=== PATIENT | female | born 1930 | race Caucasian/White ===

== ENCOUNTER 2017-03-17 10:00 | Inpatient (IN) | payer MEDICARE ==
[~2017-03-17] VITALS: Ht 172.7 cm; Wt 79.4 kg
--- NOTE | 2017-03-17 10:00 | NUR ---
DR FAYE AT THE BEDSIDE FOR MSE.
[2017-03-17] MEDS ORDERED: IV NORMAL SALINE 500 ML BAG IV ONE (10:15)
[2017-03-17 10:29] LABS: *BILIRUBIN,URIN NEGATIVE (NEGATIVE); *BLOOD, URINE NEGATIVE (NEGATIVE); *CLARITY,URINE CLEAR (CLEAR); *COLOR,URINE YELLOW (YELLOW); *KETONES,URINE NEGATIVE (NEGATIVE); *PROTEIN,URINE NEGATIVE (NEGATIVE); *UROBILINOGEN,URINE 0.2 E.U./dl (NORMAL); LEUKOCYTE ESTERASE ,URINE NEGATIVE (NEGATIVE); NITRITE, URINE NEGATIVE (NEGATIVE); UGLUCOSE NEGATIVE (NEGATIVE)
[2017-03-17 10:37] LABS: BACTERIA,URINE NONE SEEN /HPF (NONE SEEN); RBC,URINE 0-3 /HPF (0-3); SQUAMOUS EPITHELIAL CELL,UR FEW /HPF (NONE SEEN); WBC,URINE 0-3 /HPF (0-3)
--- NOTE | 2017-03-17 10:37 | NUR ---
[facility] COLLECTED AND SENT TO LAB, BELONGING LIST COMPLETED.
[2017-03-17 10:38] LABS: MUCUS,URINE FEW /LPF (0-FEW)
[2017-03-17 10:42] LABS: BASOPHILS # (AUTO) 0.2 K/uL (0.0-8.0); BASOPHILS % (AUTO) 1.3 % (0.0-2.0); EOSINOPHILS # (AUTO) 1.6 K/uL (0.0-0.7); EOSINOPHILS % (AUTO) 13.3 % (0.0-7.0); HEMATOCRIT 33.9 % (31.2-41.9); HEMOGLOBIN 11.8 g/dL (10.9-14.3); LYMPHOCYTES # (AUTO) 1.9 K/uL (20.0-40.0); LYMPHOCYTES % (AUTO) 16.4 % (20.5-51.5); MEAN CORPUSCULAR HEMOGLOBIN 34.4 uug (24.7-32.8); MEAN CORPUSCULAR HGB CONC 35 g/dL (32.3-35.6); MEAN CORPUSCULAR VOLUME 98.9 fL (75.5-95.3); MONOCYTES # (AUTO) 0.7 K/uL (2.0-10.0); MONOCYTES % (AUTO) 6.2 % (0.0-11.0); NEUTROPHILS # (AUTO) 7.4 K/uL (1.8-8.9); NEUTROPHILS % (AUTO) 62.8 % (38.5-71.5); PLATELET COUNT (AUTO) 255 K/uL (179-408); RED BLOOD CELL COUNT(AUTO) 3.43 MIL/uL (3.63-4.92); WHITE BLOOD COUNT (AUTO) 11.7 K/uL (3.8-11.8)
[2017-03-17 10:57] LABS: ALANINE AMINOTRANSFERASE 25 U/L (14-59); ALKALINE PHOSPHATASE 78 U/L (50-136); ASPARTATE AMINOTRANSFERASE 19 U/L (15-37); BILIRUBIN,DIRECT 0.1 mg/dL (0.0-0.2); BILIRUBIN,TOTAL 0.5 mg/dL (0.2-1.0); CARBON DIOXIDE 25 mmol/L (21-32); CHLORIDE 103 mmol/L (98-107); CREATININE 0.9 mg/dL (0.6-1.3); GLUCOSE 101 mg/dL (74-106); POTASSIUM 4.4 mmol/L (3.5-5.1); TOTAL PROTEIN, SERUM 7.3 g/dL (6.4-8.2); UREA NITROGEN, BLOOD 18 mg/dL (7-18)
[2017-03-17] MEDS ORDERED: LEVO25TA9 PO (11:05)
[2017-03-17] MEDS ORDERED: HYDR-3326 PO (11:05)
[2017-03-17] MEDS ORDERED: ASPI81TA31 PO (11:05)
[2017-03-17] MEDS ORDERED: AMLO2.5T PO (11:05)
[2017-03-17] MEDS ORDERED: DIVA250T PO (11:05)
[2017-03-17] MEDS ORDERED: ATOR10TA PO (11:05)
[2017-03-17] MEDS ORDERED: LORA0.5T PO (11:05)
[2017-03-17] MEDS ORDERED: MIRT15TA7 PO (11:05)
[2017-03-17] MEDS ORDERED: CITA20TA11 PO (11:05)
[2017-03-17] MEDS ORDERED: ESOM40CA PO (11:05)
[2017-03-17] MEDS ORDERED: METO50TA16 PO (11:05)
--- NOTE | 2017-03-17 11:12 | NUR ---
DR WASHINGTON(ORTHO SURGEON) AT THE BEDSIDE.
[2017-03-17] MEDS ORDERED: MORPHINE SULFATE 2 MG/1 ML DISP.SYRIN IV PRN (11:15)
[2017-03-17] MEDS ORDERED: ONDANSETRON 4 MG/2 ML VIAL IV PRN (11:15)
[2017-03-17] MEDS ORDERED: MAGNESIUM HYDROXIDE 30 ML LIQUID UDC PO PRN (11:15)
[2017-03-17 12:16] VITALS: BP 115/74
[2017-03-17] MEDS ORDERED: DIVA125T2 PO (12:40)
[2017-03-17] MEDS: MORPHINE SULFATE 4 MG/1 ML DISP.SYRIN IV PRN ×2 (14:53→22:44)
[2017-03-17 15:07] VITALS: BP 132/72
[2017-03-17] MEDS: ATORVASTATIN 10 MG TABLET PO SCH (18:16)
[2017-03-17] MEDS: MIRTAZAPINE 15 MG TABLET PO SCH (18:16)
[2017-03-17] MEDS: LORAZEPAM 0.5 MG TABLET PO SCH ×2 (18:16→22:30)
--- NOTE | 2017-03-17 19:30 | NUR ---
Received patient laying in bed. Family at bedside. No acute distress noted. Patient is on 02 2L NC.TELE Pacing. IVF infusing. Patient's left foot is being stabilized by a pillow. Sabillon draining. Safety initiated. Call light within reach. Will continue to monitor.
[2017-03-17 20:00] VITALS: BP 131/64
[2017-03-17] MEDS: POTASSIUM CHLORIDE 20 MEQ in IV D5 1/2 NS 1000 ML 1,000 ML IV PRN (20:53)
[2017-03-18] VITALS (12 sets, daily range): BP systolic 121–154; BP diastolic 45–90
[2017-03-18] MEDS: MORPHINE SULFATE 4 MG/1 ML DISP.SYRIN IV PRN ×4 (03:09→21:07)
[2017-03-18] MEDS: LORAZEPAM 0.5 MG TABLET PO SCH (05:21)
[2017-03-18] MEDS: ACETAMINOPHEN 325 MG TABLET PO PRN (05:21)
--- NOTE | 2017-03-18 06:50 | NUR ---
Patient slept intermittently t/o shift. Patient c/o pain on the left leg. Meds given, demonstrated relief. Patient had an episode of anxiety, started taking out the TELE leads and oxygen. After a few minutes, she calmed down and I was able to put the tele leads back on. However, she refused the nasal cannula. Tele reads AV pacing. IVF infusing. Noted edema on the left leg. Pedal pulses on bilateral feet. Refused to be turned. Sabillon cath draining well. Sabillon care provided. Safety and comfort measures maintained t/o shift. Vital signs stable. All meds given as ordered. All needs met.
[2017-03-18] MEDS: LEVOTHYROXINE SODIUM 25 MCG TABLET PO SCH (07:00)
--- NOTE | 2017-03-18 07:30 | NUR ---
Awake, confused with healthcare management consultant at bedside. IV site leaking. Reinsertion attempted by machinist 2nd shift RN, but unsuccessful, will retry again, when patient is calmer
[2017-03-18 08:05] LABS: HEMATOCRIT 33.9 % (31.2-41.9); HEMOGLOBIN 11.5 g/dL (10.9-14.3); LYMPHOCYTES % (AUTO) 10.7 % (20.5-51.5); MEAN CORPUSCULAR HGB CONC 34 g/dL (32.3-35.6); MEAN CORPUSCULAR VOLUME 100.3 fL (75.5-95.3); MONOCYTES % (AUTO) 12.1 % (0.0-11.0); NEUTROPHILS % (AUTO) 67.6 % (38.5-71.5); PLATELET COUNT (AUTO) 243 K/uL (179-408); RED BLOOD CELL COUNT(AUTO) 3.38 MIL/uL (3.63-4.92); WHITE BLOOD COUNT (AUTO) 14.4 K/uL (3.8-11.8)
[2017-03-18 08:06] LABS: BASOPHILS # (AUTO) 0.1 K/uL (0.0-8.0); BASOPHILS % (AUTO) 0.6 % (0.0-2.0); EOSINOPHILS # (AUTO) 1.3 K/uL (0.0-0.7); LYMPHOCYTES # (AUTO) 1.5 K/uL (20.0-40.0); MONOCYTES # (AUTO) 1.7 K/uL (2.0-10.0); NEUTROPHILS # (AUTO) 9.7 K/uL (1.8-8.9)
[2017-03-18 08:20] LABS: ALANINE AMINOTRANSFERASE 21 U/L (14-59); ALKALINE PHOSPHATASE 72 U/L (50-136); ASPARTATE AMINOTRANSFERASE 14 U/L (15-37); BILIRUBIN,TOTAL 0.8 mg/dL (0.2-1.0); CARBON DIOXIDE 25 mmol/L (21-32); CHLORIDE 107 mmol/L (98-107); CHOLESTEROL 107 mg/dL (<200); CREATININE 0.9 mg/dL (0.6-1.3); GLUCOSE 112 mg/dL (74-106); HDL CHOLESTEROL 53 mg/dL (40-60); MAGNESIUM 1.8 mg/dL (1.8-2.4); POTASSIUM 4.5 mmol/L (3.5-5.1); TOTAL PROTEIN, SERUM 7.5 g/dL (6.4-8.2); TRIGLYCERIDES 45 MG/DL (30-150); UREA NITROGEN, BLOOD 19 mg/dL (7-18)
[2017-03-18] MEDS: AMLODIPINE 2.5 MG TABLET PO SCH (09:00)
[2017-03-18] MEDS: CHOLECALCIFEROL 400 UNITS TABLET PO SCH (09:00)
[2017-03-18] MEDS ORDERED: DIVALPROEX ER 250 MG TAB.SR.24H PO SCH (09:00)
[2017-03-18] MEDS: CITALOPRAM 20 MG TABLET PO SCH (09:00)
[2017-03-18] MEDS: CYANOCOBALAMIN 1,000 MCG TABLET PO SCH (09:00)
[2017-03-18] MEDS: ENOXAPARIN SODIUM 40 MG/0.4 ML DISP.SYRIN SQ SCH (09:00)
[2017-03-18] MEDS: MULTIVITAMINS,THERAPEUTIC TABLET PO SCH (09:00)
[2017-03-18] MEDS: PANTOPRAZOLE SODIUM 40 MG TABLET.DR PO SCH (09:00)
[2017-03-18] MEDS: METOPROLOL TARTRATE 50 MG TABLET PO SCH (09:00)
[2017-03-18] MEDS: DIVALPROEX 125 MG TABLET.DR PO SCH (09:00)
[2017-03-18] MEDS: OMEGA-3 FATTY ACIDS/FISH OIL CAPSULE PO SCH (09:00)
[2017-03-18] MEDS: POTASSIUM CHLORIDE 20 MEQ in IV D5 1/2 NS 1000 ML 1,000 ML IV PRN ×2 (09:25→23:53)
--- NOTE | 2017-03-18 09:25 | NUR ---
Patient agitated and combative, hitting, scratching, pulling. Saline lock placed to left upper arm with 2 person holding patient. IV site wrapped with ramesh dressing. IVF resumed. Complaining of pain, holding left hip. Morphine IV given as ordered. Resting, calmer after.
[2017-03-18] MEDS ORDERED: POLYMYXIN B SULFATE 500,000 UNITS, BACITRACIN 50,000 UNITS, NORMAL SALINE 20 ML MC ONE ×3 (14:00)
[2017-03-18] MEDS ORDERED: LIDOCAINE HCL 2% 20 ML VIAL MC ONE (14:24)
[2017-03-18] MEDS ORDERED: DEXAMETHASONE SOD PHOSPHATE 4 MG INJ IV ONE (14:24)
[2017-03-18] MEDS ORDERED: PROPOFOL 200 MG/20 ML BOTTLE IV ONE (14:24)
[2017-03-18] MEDS ORDERED: CEFAZOLIN 1 G VIAL MC ONE (14:24)
[2017-03-18] MEDS ORDERED: ONDANSETRON 4 MG/2 ML VIAL IV ONE (14:24)
[2017-03-18] MEDS ORDERED: NEOSTIGMINE METHYLSULFATE 10 MG/10 ML VIAL IV ONE (14:24)
[2017-03-18] MEDS ORDERED: IV LACTATED RINGERS SOLUTION 1,000 ML BAG IV ONE (14:24)
[2017-03-18] MEDS ORDERED: GLYCOPYRROLATE 0.2 MG/ML VIAL MC ONE (14:24)
[2017-03-18] MEDS ORDERED: DESFLURANE ANESTHESIA GAS 240 ML BOTTLE IH ONE (14:24)
[2017-03-18] MEDS ORDERED: IRR NORMAL SALINE IRRIGATION 1,000 ML BOTTLE IR ONE (14:24)
[2017-03-18] MEDS ORDERED: ROCURONIUM BROMIDE 50 MG/5 ML VIAL ONE (15:07)
--- NOTE | 2017-03-18 15:26 | NUR ---
To OR by bed
[2017-03-18] MEDS ORDERED: HYDROCODONE/APAP 5-325MG TABLET PO PRN (18:45)
--- NOTE | 2017-03-18 18:45 | NUR ---
INH TX GIVEN PER MD ORDER WITH 2.5MG ALBUTEROL AND 0.5MG ATROVENT
[2017-03-18] MEDS ORDERED: IPRATROPIUM BROMIDE 0.5 MG/2.5 ML NEBU ONE (18:58)
[2017-03-18] MEDS ORDERED: ALBUTEROL SULFATE 2.5 MG/3 ML NEBU ONE (18:58)
[2017-03-18] MEDS ORDERED: KETOROLAC TROMETHAMINE 30 MG INJ IVP PRN (19:00)
--- NOTE | 2017-03-18 19:50 | NUR ---
nsg: pt received fr pacu, a/o x 1. no acute distress noted. on 4L O2 via nc saturating at 99%. will titrate O2 to keep sat above 92%. tele, a pacing. neuro and circulatory checks completed. left hip dressing dry and intact. pedal pulses bilateral, wnl. abductor pillow in place. f/c draining victorino colored urine via gravity. iv's on left antecubital and right wrist patents. hip precaution maintained. cont to monitor.
[2017-03-18] MEDS: ATORVASTATIN 10 MG TABLET PO SCH ×2 (21:04→21:20)
[2017-03-18] MEDS: MIRTAZAPINE 15 MG TABLET PO SCH ×2 (21:05→21:20)
[2017-03-18] MEDS ORDERED: LORAZEPAM 2 MG/1 ML VIAL IV ONE (21:30)
--- NOTE | 2017-03-18 21:30 | NUR ---
NSG: Pt pulled out iv on right wrist. also, trying to pull out f/c. reorientation and reinforcement provided but pt remains confuse, combative to staff, trying to reach to pull f/c, and nasal cannula. will cont to monitor and notify md to see any treatment plan.
--- NOTE | 2017-03-18 22:15 | NUR ---
nsg: spoke with Dr. Brown. notified regarding patient behavior of pulling lines. received order for restraint (mittens).
[2017-03-19] VITALS: BP 128/50
[2017-03-19] MEDS ORDERED: CEFAZOLIN 1 G VIAL ONE (00:48)
[2017-03-19] MEDS: CEFAZOLIN 1 G in PREMIXED 1 EACH IV SCH ×3 (00:50→15:42)
--- NOTE | 2017-03-19 02:00 | NUR ---
NSG: PT COMFORTABLE SLEEPING. TITRATED O2 TO 2L VIA NC, SATURATING AT 98%.
[2017-03-19 04:00] VITALS: BP 139/50
[2017-03-19] MEDS: LEVOTHYROXINE SODIUM 25 MCG TABLET PO SCH (06:35)
[2017-03-19] MEDS: MORPHINE SULFATE 4 MG/1 ML DISP.SYRIN IV PRN ×2 (06:36→18:20)
[2017-03-19 08:45] LABS: BASOPHILS # (AUTO) 0.1 K/uL (0.0-8.0); EOSINOPHILS # (AUTO) 0.4 K/uL (0.0-0.7); HEMOGLOBIN 10.5 g/dL (10.9-14.3); LYMPHOCYTES # (AUTO) 1.5 K/uL (20.0-40.0); NEUTROPHILS # (AUTO) 14.5 K/uL (1.8-8.9); RED BLOOD CELL COUNT(AUTO) 3.07 MIL/uL (3.63-4.92)
[2017-03-19 08:57] LABS: BASOPHILS % (AUTO) 0.5 % (0.0-2.0); HEMATOCRIT 30.9 % (31.2-41.9); LYMPHOCYTES % (AUTO) 7.8 % (20.5-51.5); MEAN CORPUSCULAR HEMOGLOBIN 34.2 uug (24.7-32.8); MEAN CORPUSCULAR HGB CONC 34 g/dL (32.3-35.6); MEAN CORPUSCULAR VOLUME 100.6 fL (75.5-95.3); MONOCYTES % (AUTO) 15.6 % (0.0-11.0); NEUTROPHILS % (AUTO) 74.1 % (38.5-71.5); PLATELET COUNT (AUTO) 233 K/uL (179-408)
[2017-03-19 08:58] LABS: WHITE BLOOD COUNT (AUTO) 19.6 K/uL (3.8-11.8)
[2017-03-19 09:02] LABS: ALANINE AMINOTRANSFERASE 15 U/L (14-59); ALKALINE PHOSPHATASE 60 U/L (50-136); ASPARTATE AMINOTRANSFERASE 23 U/L (15-37); CARBON DIOXIDE 26 mmol/L (21-32); CHLORIDE 103 mmol/L (98-107); CREATININE 0.8 mg/dL (0.6-1.3); GLUCOSE 111 mg/dL (74-106); MAGNESIUM 1.7 mg/dL (1.8-2.4); PHOSPHOROUS 2.3 mg/dL (2.5-4.9); POTASSIUM 5.1 mmol/L (3.5-5.1); TOTAL PROTEIN, SERUM 7.1 g/dL (6.4-8.2); UREA NITROGEN, BLOOD 15 mg/dL (7-18)
[2017-03-19 09:23] LABS: THYROID STIMULATING HORMONE 2.494 mIU/mL (0.358-3.740)
[2017-03-19] MEDS: ASPIRIN EC 325 MG TABLET.DR PO SCH ×2 (10:29→17:21)
[2017-03-19] MEDS: CITALOPRAM 20 MG TABLET PO SCH (10:29)
[2017-03-19] MEDS: CHOLECALCIFEROL 400 UNITS TABLET PO SCH (10:30)
[2017-03-19] MEDS: PANTOPRAZOLE SODIUM 40 MG TABLET.DR PO SCH (10:30)
[2017-03-19] MEDS: OMEGA-3 FATTY ACIDS/FISH OIL CAPSULE PO SCH (10:30)
[2017-03-19] MEDS: DIVALPROEX 125 MG TABLET.DR PO SCH (10:30)
[2017-03-19] MEDS: CYANOCOBALAMIN 1,000 MCG TABLET PO SCH (10:30)
[2017-03-19] MEDS: LORAZEPAM 0.5 MG TABLET PO SCH ×2 (10:31→17:21)
[2017-03-19] MEDS: MULTIVITAMINS,THERAPEUTIC TABLET PO SCH (10:31)
[2017-03-19] MEDS: AMLODIPINE 2.5 MG TABLET PO SCH (10:37)
[2017-03-19] MEDS: METOPROLOL TARTRATE 50 MG TABLET PO SCH (10:37)
[2017-03-19] MEDS: ACETAMINOPHEN 325 MG TABLET PO PRN (10:40)
[2017-03-19] MEDS: ENOXAPARIN SODIUM 40 MG/0.4 ML DISP.SYRIN SQ SCH (10:44)
[2017-03-19 11:44] VITALS: BP 105/38
[2017-03-19 13:15] LABS: BAND % (MANUAL) 9 % (0-10); EOSINOPHILS % (MANUAL) 1 % (0-8); LYMPHOCYTES % (MANUAL) 7 % (20-40); MONOCYTES % (MANUAL) 9 % (2-10); NEUTROPHILS % (MANUAL) 74 % (42-75)
--- NOTE | 2017-03-19 13:40 | NUR ---
Midline inserted by JOLLY Chakraborty. Midline is at RICHARD 18g, no s/s of bleeding, site intact, dressing clean/dry.
--- NOTE | 2017-03-19 14:00 | NUR ---
Placed 1st step air mattress. Safety measures in place. Bed alarm on. Caregiver at bedside.
[2017-03-19] MEDS ORDERED: MAGNESIUM OXIDE 400 MG TABLET PO ONE (14:15)
[2017-03-19] MEDS ORDERED: SODIUM PHOSPHATE MM 15 MM in IV DEXTROSE 5% 250 ML IV ONE (15:30)
[2017-03-19] MEDS: IV D5 1/2 NS 1000 ML 1,000 ML IV PRN (15:49)
[2017-03-19 15:51] VITALS: BP 112/50
[2017-03-19] MEDS: ATORVASTATIN 10 MG TABLET PO SCH (17:21)
[2017-03-19] MEDS: MIRTAZAPINE 15 MG TABLET PO SCH (17:21)
--- NOTE | 2017-03-19 18:00 | NUR ---
Patient alert, in no distress, no SOB. IVF running, intact, no s/s of infiltration. Pain medication administered as ordered. Abductor pillow in between legs in place due to s/p left hip arthoplasty. Circulation/pulses on bilateral legs/foot checked. Sabillon cath intact/draining yellow/dark urine. Patient kept clean/dry, repositioned for comfort. Safety measures in place, bed alarm on. Caregiver at bedside. Will continue to monitor.
[2017-03-19 20:00] VITALS: BP 100/45
--- NOTE | 2017-03-19 20:00 | NUR ---
RECEIVED PATIENT ASLEEP IN BED. AROUSABLE TO NAME. NO S/S OF PAIN OR DISCOMFORT. NO FACIAL GRIMACE NOTED. ON O2 2L NC SATING. VSS. ABDUCTION PILLOW IN PLACE. F/C INTACT AND DRAINING. RECHECKED TEMPERATURE, 99.1. ALL OTHER VSS. ON AIR MATTRESS. BED ALARM ON. CALL LIGHT IN REACH. ALL NEEDS ATTENDED. WILL CONTINUE TO MONITOR.
[2017-03-20 04:42] VITALS: BP 115/51
[2017-03-20] MEDS: MORPHINE SULFATE 4 MG/1 ML DISP.SYRIN IV PRN ×2 (05:56→10:49)
--- NOTE | 2017-03-20 06:00 | NUR ---
PATIENT GIVEN MORPHINE 2MG IV PRN FOR PAIN. CAREGIVER AT BEDSIDE. VSS. IVF INFUSING WELL. BED ALARM ON. CALL LIGHT IN REACH. ALL NEEDS ATTENDED.
[2017-03-20] MEDS: IV D5 1/2 NS 1000 ML 1,000 ML IV PRN (06:16)
[2017-03-20] MEDS: LEVOTHYROXINE SODIUM 25 MCG TABLET PO SCH (06:24)
--- NOTE | 2017-03-20 06:30 | NUR ---
PATIENT ASLEEP. UNABLE TO TAKE PO SYNTHROID AT THIS TIME, PREVIOUSLY GIVEN MS 2MG IV PER PUMPER GAGER FOR PAIN. DRESSING C/D/I. CALL LIGHT IN REACH. ALL NEEDS ATTENDED, WILL CONTINUE TO MONITOR.
[2017-03-20 06:57] LABS: CARBON DIOXIDE 24 mmol/L (21-32); CHLORIDE 102 mmol/L (98-107); CREATININE 0.8 mg/dL (0.6-1.3); GLUCOSE 117 mg/dL (74-106); UREA NITROGEN, BLOOD 15 mg/dL (7-18)
[2017-03-20 07:32] LABS: BASOPHILS # (AUTO) 0.1 K/uL (0.0-8.0); BASOPHILS % (AUTO) 0.4 % (0.0-2.0); EOSINOPHILS # (AUTO) 1.3 K/uL (0.0-0.7); EOSINOPHILS % (AUTO) 8.3 % (0.0-7.0); HEMOGLOBIN 8.9 g/dL (10.9-14.3); LYMPHOCYTES # (AUTO) 1.7 K/uL (20.0-40.0); LYMPHOCYTES % (AUTO) 10.5 % (20.5-51.5); MEAN CORPUSCULAR HEMOGLOBIN 34.7 uug (24.7-32.8); MEAN CORPUSCULAR HGB CONC 36 g/dL (32.3-35.6); MONOCYTES # (AUTO) 2.3 K/uL (2.0-10.0); MONOCYTES % (AUTO) 14.4 % (0.0-11.0); NEUTROPHILS # (AUTO) 10.5 K/uL (1.8-8.9); NEUTROPHILS % (AUTO) 66.4 % (38.5-71.5); PLATELET COUNT (AUTO) 204 K/uL (179-408); RED BLOOD CELL COUNT(AUTO) 2.55 MIL/uL (3.63-4.92); WHITE BLOOD COUNT (AUTO) 15.9 K/uL (3.8-11.8)
[2017-03-20] MEDS: ASPIRIN EC 325 MG TABLET.DR PO SCH (10:04)
[2017-03-20] MEDS: OMEGA-3 FATTY ACIDS/FISH OIL CAPSULE PO SCH (10:04)
[2017-03-20] MEDS: LORAZEPAM 0.5 MG TABLET PO SCH (10:05)
[2017-03-20] MEDS: PANTOPRAZOLE SODIUM 40 MG TABLET.DR PO SCH (10:05)
[2017-03-20] MEDS: CITALOPRAM 20 MG TABLET PO SCH (10:05)
[2017-03-20] MEDS: DIVALPROEX 125 MG TABLET.DR PO SCH (10:05)
[2017-03-20] MEDS: CYANOCOBALAMIN 1,000 MCG TABLET PO SCH (10:05)
[2017-03-20] MEDS: CHOLECALCIFEROL 400 UNITS TABLET PO SCH (10:05)
[2017-03-20] MEDS: MULTIVITAMINS,THERAPEUTIC TABLET PO SCH (10:05)
[2017-03-20] MEDS: ENOXAPARIN SODIUM 40 MG/0.4 ML DISP.SYRIN SQ SCH (10:09)
[2017-03-20] MEDS: AMLODIPINE 2.5 MG TABLET PO SCH (10:17)
[2017-03-20] MEDS: METOPROLOL TARTRATE 50 MG TABLET PO SCH (10:17)
[2017-03-20 10:54] VITALS: BP 119/49
[2017-03-20 11:03] LABS: BAND % (MANUAL) 5 % (0-10); EOSINOPHILS % (MANUAL) 9 % (0-8); LYMPHOCYTES % (MANUAL) 9 % (20-40); MONOCYTES % (MANUAL) 14 % (2-10); NEUTROPHILS % (MANUAL) 63 % (42-75)
[2017-03-20] MEDS ORDERED: Morphine Sulfate Inj IV (11:47)
[2017-03-20] MEDS ORDERED: HYDR-3326 PO (11:47)
[2017-03-20] MEDS ORDERED: ASPI-610 PO (11:47)
--- NOTE | 2017-03-20 14:00 | NUR ---
Report given to JOLLY Lozano from ARU, patient to be discharged to room 104
--- NOTE | 2017-03-20 14:15 | NUR ---
Patient discharged to Acute Rehab Unit, accompanied by caregiver/family. Pt is alert, responsive, in no distress. Discharge papers/instructions provided to caregiver/family. Belonging list done, no belongings. Per caregiver, ring is in the possession of their possession (see belonging list on patient's chart, signed by caregiver Susana).
== END 2017-03-20 14:25 | DRG 469 ==
LOC: ER 10:00 → TELE 11:45 → MED 03-19 14:30
PROVIDERS: ADMIT Internal Medicine; ATTEND Internal Medicine
PROC: 0SRS0JZ Replacement of Left Hip Joint, Femoral Surface with Synthetic Substitute, Open Approach (ICD-10-PCS; principal; 2017-03-18 15:56)
PROC: 05H633Z Insertion of Infusion Device into Left Subclavian Vein, Percutaneous Approach (ICD-10-PCS; 2017-03-19)
DX: S72.012A Unspecified intracapsular fracture of left femur, initial encounter for closed fracture (principal); G93.49 Other encephalopathy; J90 Pleural effusion, not elsewhere classified; E83.42 Hypomagnesemia; E66.9 Obesity, unspecified; F03.90 Unspecified dementia, unspecified severity, without behavioral disturbance, psychotic disturbance, mood disturbance, and anxiety; E78.5 Hyperlipidemia, unspecified; W18.30XA Fall on same level, unspecified, initial encounter; Y92.009 Unspecified place in unspecified non-institutional (private) residence as the place of occurrence of the external cause; K21.9 Gastro-esophageal reflux disease without esophagitis; F41.9 Anxiety disorder, unspecified; Z85.3 Personal history of malignant neoplasm of breast; M85.80 Other specified disorders of bone density and structure, unspecified site; Z95.0 Presence of cardiac pacemaker; Z68.26 Body mass index [BMI] 26.0-26.9, adult; F32.9 Major depressive disorder, single episode, unspecified; Z87.891 Personal history of nicotine dependence; Z79.82 Long term (current) use of aspirin; Z79.899 Other long term (current) drug therapy; D72.829 Elevated white blood cell count, unspecified; I10 Essential (primary) hypertension; R73.9 Hyperglycemia, unspecified; E03.9 Hypothyroidism, unspecified
CPT/HCPCS: 36415; 70030-TC; 71045; 72170; 73502; 73503; 83605; 83735; 84100; 84443; 85025; 85730; 86850; 86900; 86901; 86920; 87040; 87086; 93005; 93307; 94664; 97110; 97530; A4217; A4663; J0690; J1100; J1650; J2060; J2270; J2405; J2710; J3480; J3490; J3590; J7040; J7060; J7120

== ENCOUNTER 2017-03-20 12:48 | Inpatient (IN) | payer MEDICARE ==
[~2017-03-20] VITALS: Ht 172.7 cm; Wt 79.4 kg
[~2017-03-20 12:48] MED LIST: AMLO2.5T PO; ASPI-610 PO; ASPI81TA31 PO; ATOR10TA PO; CITA20TA11 PO; DIVA125T2 PO; ESOM40CA PO; HYDR-3326 PO; LEVO25TA9 PO; LORA0.5T PO; METO50TA16 PO; MIRT15TA7 PO; Morphine Sulfate Inj IV
[2017-03-20] MEDS ORDERED: Z GUARD REMEDY PASTE 57 GM TUBE TOP PRN (15:30)
[2017-03-20] MEDS ORDERED: MAGNESIUM HYDROXIDE 30 ML LIQUID UDC PO PRN (15:30)
[2017-03-20 17:33] VITALS: BP 142/58
[2017-03-20] MEDS ORDERED: HYDROCODONE/APAP 5-325MG TABLET PO PRN (19:00)
[2017-03-20 20:51] VITALS: BP 131/59
[2017-03-20] MEDS: ACETAMINOPHEN 325 MG TABLET PO SCH (20:56)
[2017-03-20] MEDS ORDERED: LORAZEPAM 0.5 MG TABLET PO ONE (21:00)
[2017-03-20] MEDS: ATORVASTATIN 10 MG TABLET PO SCH (21:31)
[2017-03-20] MEDS ORDERED: ACETAMINOPHEN 650 MG/20.3 ML LIQUID UDC PO SCH (22:00)
[2017-03-21] MEDS: HYDROCODONE/APAP 5-325MG TABLET PO PRN ×2 (00:09→09:04)
[2017-03-21] MEDS: PANTOPRAZOLE SODIUM 40 MG TABLET.DR PO SCH (06:22)
[2017-03-21] MEDS: ACETAMINOPHEN 325 MG TABLET PO SCH ×3 (06:22→21:16)
[2017-03-21] MEDS: LEVOTHYROXINE SODIUM 25 MCG TABLET PO SCH (06:22)
[2017-03-21 08:00] VITALS: BP 124/56
[2017-03-21] MEDS: CITALOPRAM 20 MG TABLET PO SCH (08:56)
[2017-03-21] MEDS: ASPIRIN EC 325 MG TABLET.DR PO SCH ×2 (08:57→17:11)
[2017-03-21] MEDS: LORAZEPAM 0.5 MG TABLET PO SCH ×2 (08:57→17:12)
[2017-03-21] MEDS: AMLODIPINE 2.5 MG TABLET PO SCH (08:58)
[2017-03-21] MEDS: METOPROLOL TARTRATE 50 MG TABLET PO SCH (12:37)
[2017-03-21] MEDS: DIVALPROEX 125 MG TABLET.DR PO SCH (12:38)
[2017-03-21] MEDS: MIRTAZAPINE 15 MG TABLET PO SCH (17:12)
[2017-03-21] MEDS: ATORVASTATIN 10 MG TABLET PO SCH (17:12)
[2017-03-21 20:42] VITALS: BP 93/60
[2017-03-22] MEDS: HYDROCODONE/APAP 5-325MG TABLET PO PRN (04:20)
[2017-03-22] MEDS: PANTOPRAZOLE SODIUM 40 MG TABLET.DR PO SCH (06:43)
[2017-03-22] MEDS: ACETAMINOPHEN 325 MG TABLET PO SCH ×3 (06:43→21:31)
[2017-03-22] MEDS: LEVOTHYROXINE SODIUM 25 MCG TABLET PO SCH (06:44)
[2017-03-22 08:00] VITALS: BP 99/41
[2017-03-22] MEDS: METOPROLOL TARTRATE 50 MG TABLET PO SCH (09:00)
[2017-03-22] MEDS: AMLODIPINE 2.5 MG TABLET PO SCH (09:00)
[2017-03-22 09:30] VITALS: BP 124/65
[2017-03-22] MEDS: ASPIRIN EC 325 MG TABLET.DR PO SCH ×2 (09:55→17:00)
[2017-03-22] MEDS: LORAZEPAM 0.5 MG TABLET PO SCH ×2 (09:55→17:30)
[2017-03-22] MEDS: DIVALPROEX 125 MG TABLET.DR PO SCH (09:56)
[2017-03-22] MEDS: CITALOPRAM 20 MG TABLET PO SCH (09:57)
[2017-03-22] MEDS: ATORVASTATIN 10 MG TABLET PO SCH (17:33)
[2017-03-22] MEDS: MIRTAZAPINE 15 MG TABLET PO SCH (17:33)
[2017-03-22 20:28] VITALS: BP 129/50
[2017-03-23] MEDS: PANTOPRAZOLE SODIUM 40 MG TABLET.DR PO SCH (06:15)
[2017-03-23] MEDS: LEVOTHYROXINE SODIUM 25 MCG TABLET PO SCH (06:16)
[2017-03-23] MEDS: ACETAMINOPHEN 325 MG TABLET PO SCH ×3 (06:16→21:00)
[2017-03-23] MEDS: ASPIRIN 325 MG TABLET PO SCH ×2 (08:37→17:18)
[2017-03-23] MEDS: DIVALPROEX 125 MG TABLET.DR PO SCH (08:37)
[2017-03-23] MEDS: LORAZEPAM 0.5 MG TABLET PO SCH ×2 (08:38→17:18)
[2017-03-23] MEDS: CITALOPRAM 20 MG TABLET PO SCH (08:38)
[2017-03-23] MEDS: METOPROLOL TARTRATE 50 MG TABLET PO SCH (08:38)
[2017-03-23] MEDS: AMLODIPINE 2.5 MG TABLET PO SCH (08:38)
[2017-03-23 08:53] VITALS: BP 128/62
[2017-03-23] MEDS: ATORVASTATIN 10 MG TABLET PO SCH (17:18)
[2017-03-23] MEDS: MIRTAZAPINE 15 MG TABLET PO SCH (17:18)
[2017-03-23 20:26] VITALS: BP 128/74
[2017-03-23] MEDS: LORAZEPAM 0.5 MG TABLET PO PRN (21:08)
[2017-03-23] MEDS ORDERED: LORAZEPAM 0.5 MG TABLET ONE (21:26)
[2017-03-24] MEDS: PANTOPRAZOLE SODIUM 40 MG TABLET.DR PO SCH (06:19)
[2017-03-24] MEDS: LEVOTHYROXINE SODIUM 25 MCG TABLET PO SCH (06:19)
[2017-03-24] MEDS: ACETAMINOPHEN 325 MG TABLET PO SCH ×3 (06:19→21:07)
[2017-03-24] MEDS ORDERED: LEVOTHYROXINE SODIUM 25 MCG TABLET ONE (06:28)
[2017-03-24 08:00] VITALS: BP 161/74
[2017-03-24] MEDS: ASPIRIN 325 MG TABLET PO SCH ×2 (08:28→17:09)
[2017-03-24] MEDS: DIVALPROEX 125 MG TABLET.DR PO SCH (08:28)
[2017-03-24] MEDS: CITALOPRAM 20 MG TABLET PO SCH (08:28)
[2017-03-24] MEDS: AMLODIPINE 2.5 MG TABLET PO SCH (08:29)
[2017-03-24] MEDS: LORAZEPAM 0.5 MG TABLET PO SCH ×2 (08:29→17:10)
[2017-03-24] MEDS: METOPROLOL TARTRATE 50 MG TABLET PO SCH (08:29)
[2017-03-24] MEDS: ATORVASTATIN 10 MG TABLET PO SCH (17:10)
[2017-03-24] MEDS: MIRTAZAPINE 15 MG TABLET PO SCH (17:10)
[2017-03-24 19:55] VITALS: BP 140/55
[2017-03-24] MEDS: LORAZEPAM 0.5 MG TABLET PO PRN (21:39)
[2017-03-25] MEDS: LEVOTHYROXINE SODIUM 25 MCG TABLET PO SCH (06:07)
[2017-03-25] MEDS: ACETAMINOPHEN 325 MG TABLET PO SCH ×3 (06:07→21:05)
[2017-03-25] MEDS: PANTOPRAZOLE SODIUM 40 MG TABLET.DR PO SCH (06:07)
[2017-03-25 08:39] VITALS: BP 125/57
[2017-03-25] MEDS: ASPIRIN 325 MG TABLET PO SCH ×2 (08:42→17:25)
[2017-03-25] MEDS: DIVALPROEX 125 MG TABLET.DR PO SCH (08:42)
[2017-03-25] MEDS: CITALOPRAM 20 MG TABLET PO SCH (08:42)
[2017-03-25] MEDS: LORAZEPAM 0.5 MG TABLET PO SCH ×2 (08:42→17:25)
[2017-03-25] MEDS: HYDROCODONE/APAP 5-325MG TABLET PO PRN (08:43)
[2017-03-25] MEDS: METOPROLOL TARTRATE 50 MG TABLET PO SCH (08:44)
[2017-03-25] MEDS: AMLODIPINE 2.5 MG TABLET PO SCH (08:44)
[2017-03-25] MEDS: ATORVASTATIN 10 MG TABLET PO SCH (17:25)
[2017-03-25] MEDS: MIRTAZAPINE 15 MG TABLET PO SCH (17:26)
[2017-03-25 21:28] VITALS: BP 129/62
[2017-03-26] MEDS: PANTOPRAZOLE SODIUM 40 MG TABLET.DR PO SCH (06:42)
[2017-03-26] MEDS: LEVOTHYROXINE SODIUM 25 MCG TABLET PO SCH (06:42)
[2017-03-26] MEDS: ACETAMINOPHEN 325 MG TABLET PO SCH ×3 (06:42→21:04)
[2017-03-26 07:10] VITALS: BP 159/82
[2017-03-26] MEDS: CITALOPRAM 20 MG TABLET PO SCH (08:25)
[2017-03-26] MEDS: ASPIRIN 325 MG TABLET PO SCH ×2 (08:25→16:28)
[2017-03-26] MEDS: LORAZEPAM 0.5 MG TABLET PO SCH ×2 (08:26→16:29)
[2017-03-26] MEDS: DIVALPROEX 125 MG TABLET.DR PO SCH (08:27)
[2017-03-26] MEDS: METOPROLOL TARTRATE 50 MG TABLET PO SCH (08:27)
[2017-03-26] MEDS: AMLODIPINE 2.5 MG TABLET PO SCH (08:27)
[2017-03-26] MEDS: HYDROCODONE/APAP 5-325MG TABLET PO PRN (10:58)
[2017-03-26] MEDS: MIRTAZAPINE 15 MG TABLET PO SCH (17:03)
[2017-03-26] MEDS: ATORVASTATIN 10 MG TABLET PO SCH (17:03)
[2017-03-27] MEDS: LORAZEPAM 0.5 MG TABLET PO PRN (00:03)
[2017-03-27] MEDS: ACETAMINOPHEN 325 MG TABLET PO SCH ×3 (06:09→21:10)
[2017-03-27] MEDS: PANTOPRAZOLE SODIUM 40 MG TABLET.DR PO SCH (06:11)
[2017-03-27] MEDS: LEVOTHYROXINE SODIUM 25 MCG TABLET PO SCH (06:15)
[2017-03-27 07:25] VITALS: BP 140/67
[2017-03-27] MEDS: CITALOPRAM 20 MG TABLET PO SCH (08:53)
[2017-03-27] MEDS: DIVALPROEX 125 MG TABLET.DR PO SCH (08:53)
[2017-03-27] MEDS: ASPIRIN 325 MG TABLET PO SCH ×2 (08:53→17:36)
[2017-03-27] MEDS: LORAZEPAM 0.5 MG TABLET PO SCH ×2 (08:53→17:36)
[2017-03-27] MEDS: METOPROLOL TARTRATE 50 MG TABLET PO SCH (08:54)
[2017-03-27] MEDS: HYDROCODONE/APAP 5-325MG TABLET PO PRN (08:55)
[2017-03-27] MEDS: AMLODIPINE 2.5 MG TABLET PO SCH (08:55)
[2017-03-27] MEDS: MIRTAZAPINE 15 MG TABLET PO SCH (17:36)
[2017-03-27] MEDS: ATORVASTATIN 10 MG TABLET PO SCH (17:36)
[2017-03-27 20:00] VITALS: BP 131/61
[2017-03-28] MEDS: PANTOPRAZOLE SODIUM 40 MG TABLET.DR PO SCH (06:14)
[2017-03-28] MEDS: ACETAMINOPHEN 325 MG TABLET PO SCH ×3 (06:15→20:38)
[2017-03-28] MEDS: LEVOTHYROXINE SODIUM 25 MCG TABLET PO SCH (06:15)
[2017-03-28] MEDS: ASPIRIN 325 MG TABLET PO SCH ×2 (08:55→17:19)
[2017-03-28] MEDS: METOPROLOL TARTRATE 50 MG TABLET PO SCH (08:55)
[2017-03-28] MEDS: LORAZEPAM 0.5 MG TABLET PO SCH ×2 (08:56→17:19)
[2017-03-28] MEDS: DIVALPROEX 125 MG TABLET.DR PO SCH (08:56)
[2017-03-28] MEDS: AMLODIPINE 2.5 MG TABLET PO SCH (08:56)
[2017-03-28] MEDS: CITALOPRAM 20 MG TABLET PO SCH (08:56)
[2017-03-28 09:03] VITALS: BP 158/70
[2017-03-28] MEDS: HYDROCODONE/APAP 5-325MG TABLET PO PRN (09:06)
[2017-03-28] MEDS: ATORVASTATIN 10 MG TABLET PO SCH (17:19)
[2017-03-28] MEDS: MIRTAZAPINE 15 MG TABLET PO SCH (17:19)
[2017-03-28 20:28] VITALS: BP 137/73
[2017-03-28] MEDS: LORAZEPAM 0.5 MG TABLET PO PRN (23:55)
[2017-03-29] MEDS: PANTOPRAZOLE SODIUM 40 MG TABLET.DR PO SCH (06:09)
[2017-03-29] MEDS: ACETAMINOPHEN 325 MG TABLET PO SCH ×3 (06:09→21:12)
[2017-03-29] MEDS: LEVOTHYROXINE SODIUM 25 MCG TABLET PO SCH (06:11)
[2017-03-29 08:13] VITALS: BP 133/55
[2017-03-29] MEDS: AMLODIPINE 2.5 MG TABLET PO SCH (08:32)
[2017-03-29] MEDS: LORAZEPAM 0.5 MG TABLET PO SCH ×2 (08:32→16:18)
[2017-03-29] MEDS: ASPIRIN 325 MG TABLET PO SCH ×2 (08:32→16:18)
[2017-03-29] MEDS: METOPROLOL TARTRATE 50 MG TABLET PO SCH (08:34)
[2017-03-29] MEDS: DIVALPROEX 125 MG TABLET.DR PO SCH (08:34)
[2017-03-29] MEDS: HYDROCODONE/APAP 5-325MG TABLET PO PRN (08:34)
[2017-03-29] MEDS: CITALOPRAM 20 MG TABLET PO SCH (08:34)
[2017-03-29 10:12] LABS: BASOPHILS # (AUTO) 0.4 K/uL (0.0-8.0); BASOPHILS % (AUTO) 4.5 % (0.0-2.0); EOSINOPHILS # (AUTO) 1.2 K/uL (0.0-0.7); EOSINOPHILS % (AUTO) 13.1 % (0.0-7.0); HEMOGLOBIN 9.1 g/dL (10.9-14.3); LYMPHOCYTES # (AUTO) 1.6 K/uL (20.0-40.0); LYMPHOCYTES % (AUTO) 17.9 % (20.5-51.5); MEAN CORPUSCULAR HEMOGLOBIN 34.7 uug (24.7-32.8); MEAN CORPUSCULAR HGB CONC 35 g/dL (32.3-35.6); MEAN CORPUSCULAR VOLUME 98.9 fL (75.5-95.3); MONOCYTES # (AUTO) 0.9 K/uL (2.0-10.0); NEUTROPHILS # (AUTO) 4.9 K/uL (1.8-8.9); NEUTROPHILS % (AUTO) 54.5 % (38.5-71.5); PLATELET COUNT (AUTO) 359 K/uL (179-408); RED BLOOD CELL COUNT(AUTO) 2.63 MIL/uL (3.63-4.92)
[2017-03-29 10:35] LABS: ALANINE AMINOTRANSFERASE 19 U/L (14-59); ALKALINE PHOSPHATASE 116 U/L (50-136); ASPARTATE AMINOTRANSFERASE 14 U/L (15-37); BILIRUBIN,TOTAL 0.4 mg/dL (0.2-1.0); CARBON DIOXIDE 25 mmol/L (21-32); CHLORIDE 104 mmol/L (98-107); CREATININE 0.8 mg/dL (0.6-1.3); GLUCOSE 125 mg/dL (74-106); MAGNESIUM 1.7 mg/dL (1.8-2.4); POTASSIUM 4.6 mmol/L (3.5-5.1); TOTAL PROTEIN, SERUM 6.4 g/dL (6.4-8.2); UREA NITROGEN, BLOOD 14 mg/dL (7-18)
[2017-03-29] MEDS: MIRTAZAPINE 15 MG TABLET PO SCH (17:21)
[2017-03-29] MEDS: ATORVASTATIN 10 MG TABLET PO SCH (17:21)
[2017-03-29 19:54] VITALS: BP 136/64
[2017-03-29] MEDS: LORAZEPAM 0.5 MG TABLET PO PRN (21:12)
[2017-03-30] MEDS: LEVOTHYROXINE SODIUM 25 MCG TABLET PO SCH (06:22)
[2017-03-30] MEDS: PANTOPRAZOLE SODIUM 40 MG TABLET.DR PO SCH (06:22)
[2017-03-30] MEDS: ACETAMINOPHEN 325 MG TABLET PO SCH ×3 (06:22→21:07)
[2017-03-30 07:30] VITALS: BP 134/60
[2017-03-30] MEDS: ASPIRIN 325 MG TABLET PO SCH ×2 (08:45→17:19)
[2017-03-30] MEDS: CITALOPRAM 20 MG TABLET PO SCH (08:45)
[2017-03-30] MEDS: DIVALPROEX 125 MG TABLET.DR PO SCH (08:45)
[2017-03-30] MEDS: METOPROLOL TARTRATE 50 MG TABLET PO SCH (08:45)
[2017-03-30] MEDS: AMLODIPINE 2.5 MG TABLET PO SCH (08:46)
[2017-03-30] MEDS: HYDROCODONE/APAP 5-325MG TABLET PO PRN (08:46)
[2017-03-30] MEDS: LORAZEPAM 0.5 MG TABLET PO SCH ×2 (08:46→17:20)
[2017-03-30] MEDS ORDERED: MAGNESIUM OXIDE 400 MG TABLET PO ONE (17:00)
[2017-03-30] MEDS: ATORVASTATIN 10 MG TABLET PO SCH (17:20)
[2017-03-30] MEDS: MIRTAZAPINE 15 MG TABLET PO SCH (17:22)
[2017-03-30 20:18] VITALS: BP 124/52
[2017-03-31] MEDS: ACETAMINOPHEN 325 MG TABLET PO SCH ×3 (06:21→21:04)
[2017-03-31] MEDS: PANTOPRAZOLE SODIUM 40 MG TABLET.DR PO SCH (06:21)
[2017-03-31] MEDS: LEVOTHYROXINE SODIUM 25 MCG TABLET PO SCH (06:22)
[2017-03-31 08:35] VITALS: BP 129/63
[2017-03-31] MEDS: LORAZEPAM 0.5 MG TABLET PO SCH ×2 (09:17→18:29)
[2017-03-31] MEDS: DIVALPROEX 125 MG TABLET.DR PO SCH (09:17)
[2017-03-31] MEDS: CITALOPRAM 20 MG TABLET PO SCH (09:17)
[2017-03-31] MEDS: METOPROLOL TARTRATE 50 MG TABLET PO SCH (09:18)
[2017-03-31] MEDS: AMLODIPINE 2.5 MG TABLET PO SCH (09:18)
[2017-03-31] MEDS: ASPIRIN 325 MG TABLET PO SCH ×2 (09:20→18:28)
[2017-03-31] MEDS: MIRTAZAPINE 15 MG TABLET PO SCH (18:28)
[2017-03-31] MEDS: ATORVASTATIN 10 MG TABLET PO SCH (18:29)
[2017-03-31 20:49] VITALS: BP 122/62
[2017-03-31] MEDS: LORAZEPAM 0.5 MG TABLET PO PRN (22:29)
[2017-04-01] MEDS: ACETAMINOPHEN 325 MG TABLET PO SCH ×3 (06:06→21:29)
[2017-04-01] MEDS: PANTOPRAZOLE SODIUM 40 MG TABLET.DR PO SCH (06:06)
[2017-04-01] MEDS: LEVOTHYROXINE SODIUM 25 MCG TABLET PO SCH (06:07)
[2017-04-01 07:20] VITALS: BP 137/57
[2017-04-01 08:00] VITALS: BP 112/68
[2017-04-01] MEDS: DIVALPROEX 125 MG TABLET.DR PO SCH (08:57)
[2017-04-01] MEDS: CITALOPRAM 20 MG TABLET PO SCH (08:58)
[2017-04-01] MEDS: FUROSEMIDE 20 MG TABLET PO SCH (08:58)
[2017-04-01] MEDS: ASPIRIN 325 MG TABLET PO SCH ×2 (08:58→17:13)
[2017-04-01] MEDS: LORAZEPAM 0.5 MG TABLET PO SCH ×2 (08:58→17:14)
[2017-04-01] MEDS: METOPROLOL TARTRATE 50 MG TABLET PO SCH (08:59)
[2017-04-01] MEDS: AMLODIPINE 2.5 MG TABLET PO SCH (08:59)
[2017-04-01] MEDS: ATORVASTATIN 10 MG TABLET PO SCH (17:13)
[2017-04-01] MEDS: MIRTAZAPINE 15 MG TABLET PO SCH (17:14)
[2017-04-01] MEDS: LORAZEPAM 0.5 MG TABLET PO PRN (22:17)
[2017-04-02] MEDS: ACETAMINOPHEN 325 MG TABLET PO SCH ×2 (06:16→13:31)
[2017-04-02] MEDS: PANTOPRAZOLE SODIUM 40 MG TABLET.DR PO SCH (06:16)
[2017-04-02] MEDS: LEVOTHYROXINE SODIUM 25 MCG TABLET PO SCH (06:16)
[2017-04-02 07:20] VITALS: BP 132/57
[2017-04-02] MEDS: ASPIRIN 325 MG TABLET PO SCH (10:03)
[2017-04-02] MEDS: DIVALPROEX 125 MG TABLET.DR PO SCH (10:04)
[2017-04-02] MEDS: LORAZEPAM 0.5 MG TABLET PO SCH (10:04)
[2017-04-02] MEDS: AMLODIPINE 2.5 MG TABLET PO SCH (10:04)
[2017-04-02] MEDS: FUROSEMIDE 20 MG TABLET PO SCH (10:04)
[2017-04-02] MEDS: CITALOPRAM 20 MG TABLET PO SCH (10:04)
[2017-04-02] MEDS: METOPROLOL TARTRATE 50 MG TABLET PO SCH (10:05)
[2017-04-02 13:00] VITALS: BP 108/50
== END 2017-04-02 15:00 | disposition home health service (06) | DRG 559 ==
PROVIDERS: ADMIT Physical Medicine & Rehabilitation Pain Medicine; ATTEND Physical Medicine & Rehabilitation Pain Medicine
DX: M80.052D Age-related osteoporosis with current pathological fracture, left femur, subsequent encounter for fracture with routine healing (principal); E43 Unspecified severe protein-calorie malnutrition; G93.49 Other encephalopathy; I50.33 Acute on chronic diastolic (congestive) heart failure; D68.59 Other primary thrombophilia; D63.8 Anemia in other chronic diseases classified elsewhere; E83.42 Hypomagnesemia; F03.90 Unspecified dementia, unspecified severity, without behavioral disturbance, psychotic disturbance, mood disturbance, and anxiety; J98.11 Atelectasis; E03.9 Hypothyroidism, unspecified; E78.5 Hyperlipidemia, unspecified; Z85.3 Personal history of malignant neoplasm of breast; Z96.642 Presence of left artificial hip joint; K21.9 Gastro-esophageal reflux disease without esophagitis; R26.9 Unspecified abnormalities of gait and mobility; E66.9 Obesity, unspecified; Z68.26 Body mass index [BMI] 26.0-26.9, adult; F32.9 Major depressive disorder, single episode, unspecified; F41.9 Anxiety disorder, unspecified; I11.0 Hypertensive heart disease with heart failure; I49.9 Cardiac arrhythmia, unspecified; M19.90 Unspecified osteoarthritis, unspecified site; Z95.0 Presence of cardiac pacemaker; R73.9 Hyperglycemia, unspecified; M85.80 Other specified disorders of bone density and structure, unspecified site
CPT/HCPCS: 36415; 71045; 82306; 83735; 84100; 85025; 92526; 92610; 97110; 97112; 97116; 97530; 97535; A4663; J7030

== ENCOUNTER 2017-11-20 13:06 | Emergency (ER) | payer MEDICARE ==
[~2017-11-20] VITALS: Ht 165.1 cm; Wt 77.1 kg
[~2017-11-20 13:06] MED LIST changes: -AMLO2.5T PO; +AMLO2.5T3 PO; -ASPI81TA31 PO; -CITA20TA11 PO; +CITA20TA16 PO
--- NOTE | 2017-11-20 13:16 | NUR ---
PT IS IN ROOM #1B. DR SIDDIQUI EVALUATED THE PT.
[2017-11-20] MEDS ORDERED: ESOM40CA PO (13:23)
--- NOTE | 2017-11-20 14:38 | NUR ---
[facility] WAS CALLED TO TRANSFER PT HOME. SHABBIR IS 30 MINUTES.
--- NOTE | 2017-11-20 15:29 | NUR ---
PT WAS DC TO HOME VIA [facility]. D/C INSTRUCTIONS GIVEN TO THE PT's CAREGIVER.
[2017-11-20 15:30] VITALS: BP 115/68
== END 2017-11-20 15:31 | disposition home or self-care (01) ==
LOC: ER 13:09
DX: S80.02XA Contusion of left knee, initial encounter (principal); S80.01XA Contusion of right knee, initial encounter; I10 Essential (primary) hypertension; K21.9 Gastro-esophageal reflux disease without esophagitis; Z95.0 Presence of cardiac pacemaker; Z79.82 Long term (current) use of aspirin; W18.30XA Fall on same level, unspecified, initial encounter; Y93.89 Activity, other specified; Y92.89 Other specified places as the place of occurrence of the external cause; Y99.8 Other external cause status
CPT/HCPCS: 71045; 72170; 93005; A4663